=== PATIENT | male | born 1955 | race Caucasian/White ===

== ENCOUNTER → 2018-09-04 | Outpatient (CLI) | payer OTHER ==
[~2018-09-04] MED LIST: ALBAFORT325 MG PO; AMARYL2 MG PO; ARIXTRA SC; ASPIR 8181 MG PO; BRILINTA90 MG PO; COLACE100 MG PO; DAZIDOX10 MG PO; LOPRESSOR50 MG PO; METFORMIN 500500 MG PO; METFORMIN HCL500 MG PO; NITROGLYCERIN0.4 MG SUBLING; NORCO 5-325 TA1 EACH PO; OXYCONTIN CR 1010 M1 PO; SIMVASTATIN40 MG PO; TYLENOL325 MG PO; ZANTAC 150MG T150 M1 PO
--- NOTE | 2018-09-04 14:49 | EXE ---
[place] [address] STRESS ECHOCARDIOGRAM Name: ALONDRA TEJADA Room: [facility]#: [id number] Admission: 09/04/18 Attend Phys: Dru Hough MD Discharge: Date of : 57 Date of Service: 09/04/18 1448 Report #: [id number] THIS REPORT FOR: //name// APPROVED REPORT Study performed: 09/04/2018 11:17:52 Exam: Dobutamine Stress Echo Indication: CAD Patient Location: Out-Patient Stress Nurse: Caty Jeter RN Supervising Physician: Dru Hough MD Status: routine Ht: 5 ft 6 in HR: 67 bpm BP: 145/77 mmHg Rhythm: NSR Medical History Medical History: CAD s/p stent Cardiac Risk Factors: Hyperlipidemia, HTN, DM Previous Cardiac Procedures: PCI Procedure The patient underwent a Pharmacological Stress Test using Dobutamine. Blood pressure, heart rate, and EKG were monitored. An Echocardiogram was performed by air sealing technician in four stages in quad fashion. At peak stress, four selected images were obtained and placed side by side with resting images for comparison. Echo Enhancing Agent Indication: Endocardial border delineation Agent(s) / Amount(s) Used: Optison 10 cc Stress Test Details Stress Test: Pharmacological Stress Test using Dobutamine. Reason for pharmacologic stress test: physical limitation. HR Resting HR: 67 bpm Max Heart Rate (APMHR): 158 bpm Max HR Achieved: 135 bpm Target HR (85% APMHR): 134 bpm % of APMHR: 85 Recovery HR: 92 bpm HR response to stress: [place] [address] STRESS ECHOCARDIOGRAM Name: ALNODRA TEJADA Room: [facility]#: [id number] Admission: 09/04/18 Attend Phys: Dru Hough MD Discharge: Date of : 57 Date of Service: 09/04/18 1448 Report #: [id number] Resting BP: 145/77 mmHg Max BP: 180/55 mmHg Recovery BP: 142/69 mmHg BP response to stress: Normal blood pressure response to stress. ECG Resting ECG: Sinus Rhythm Stress ECG: Sinus Tachycardia ST Change: Normal Maximum ST Deviation: 0 mm Arrhythmia: VPC's Recovery ECG: Sinus Rhythm Recovery ST Change: Normal Recovery ST Deviation: 0 mm Recovery Arrhythmia: VPC Clinical Reason for Termination: Completed protocol Stress Symptoms: Chest pain Pre-Stress Echo The resting Echocardiogram showed normal left ventricular contractility with an estimated Ejection Fraction of about 55-60%. Post-Stress Echo The stress Echocardiogram showed normal left ventricular contractility with an estimated Ejection Fraction of about 65-70%. Conclusion Clinical Response: Equivocal Stress ECG Response: Non-ischemic Stress Echo Images: Non-ischemic low risk dobutamine stress echo for future cardiac events Other Information Study Quality: Technically Difficult Technically limited study due to poor endocardial definition, [place] [address] STRESS ECHOCARDIOGRAM Name: ALONDRA TEJADA Room: [facility]#: [id number] Admission: 09/04/18 Attend Phys: Dru Hough MD Discharge: Date of : 57 Date of Service: 09/04/18 1448 Report #: [id number] <Conclusion> low risk dobutamine stress echo for future cardiac events <ELECTRONICALLY SIGNED> By: Dru Hough MD, [facility] 09/04/18 1448 47 47 Dru Hough MD, FACC /INF
== END ==
LOC: M.CRD 10:37
DX: I25.10 Atherosclerotic heart disease of native coronary artery without angina pectoris (principal)